=== PATIENT | female | born 1970 | race African-American/Black ===

== ENCOUNTER 2016-10-06 08:59 | Emergency (ER) | payer OTHER ==
[~2016-10-06 08:59] MED LIST: ABILIFY20 MG PO; ACETAMINOPHEN PO; ALPRAZOLAM PO; AMBIEN PO; ARIXTRA2.5 MG/0.5 INJ; ATIVAN2 M1 PO; AZITHROMYCIN250 MG PO; BACTRIM DS TABL1 TA1 PO; BACTRIM DS TABL1 TAB PO; BENADRYL25 M3 PO; BENTYL20 MG PO; CIPRO PO; CLEOCIN150 MG DOB; CLEOCIN150 MG PO; COLACE PO; COMPAZINE10 MG PO; COUMADIN PO; COUMADIN10 MG PO; COUMADIN2.5 MG PO; COUMADIN7.5 MG; COUMADIN7.5 MG PO; DARVOCET-N 1001 TA1 PO; DEPAKOTE PO; DILANTIN PO; DILANTIN-1100 MG/4 M PO; FAMOTIDINE PO; FLEXERIL PO; FLEXERIL10 M1 PO; FOLIC ACID PO; HYDROCORTISONE30 G2 EXT; IBUPROFEN800 MG PO; KEFLEX PO; KEPPRA500 MG PO; KLONOPIN PO; LACTULOSE10 G/15 ML PO; LEVAQUIN PO; LORTAB 5/500 TA1 TA1 PO; LORTAB 7.5-5001 TAB PO; LOVENOX SUBQ; LOVENOX100 MG/ML INJ; LOVENOX80 MG/0.8 INJ; LOVENOX80 MG/0.8 SUBQ; MEDROL DOSEPAK4 MG PO; MEDROL PO; MILK OF MAGNESIA PO; MIRALAX17 GM DOB; MIRALAX17 GM PO; NAPROXEN PO; NO MEDICATIONS; NORCO 10-325 TA1 TAB PO; NORCO 10/325 TA1 TAB PO; NORCO 5/325 TAB1 TAB PO; NORFLEX100 MG PO; NUCYNTA75 MG PO; PERCOCET PO; PERCOCET5/325 PO; PHENERGAN PO; PHENERGAN PR; PHENERGAN12.5 MG/SU RC; PHENERGAN25 M1 PO; PHENERGAN25 MG; PHENERGAN25 MG PO; PLAVIX PO; PRADAXA75 MG PO; PREDNISONE10 MG/DOSE PO; PREVACID PO; PROTONIX PO; PROTONIX20 MG PO; PYRIDIUM PO; REMERON15 MG PO; RISPERDAL1 M1 PO; RISPERIDONE PO; SENNA S TABLET1 TAB PO; SEROQUEL25 MG PO; SEROQUEL50 MG PO; SIMVASTATIN20 MG PO; SKELAXIN PO; SOLU-MEDROL1000 MG IM/IV; SOLU-MEDROL1000 MG IV; SYNTHROID PO; SYNTHROID112 MCG PO; SYNTHROID125 PO; SYNTHROID88 MCG PO; TORADOL10 MG PO; TYLENOL #3 PO; TYLOX 5/500 CAP1 CAP PO; ULTRAM PO; VALIUM10 MG PO; VICODIN 5/1 TAB 5/50 PO; VICODIN 5/500 T1 TAB PO; VICODIN ES 7.51 EACH PO; WARFARIN SODIUM10 MG PO; XANAX0.5 MG PO; XARELTO10 MG PO; XARELTO15 MG PO; XARELTO20 MG PO; ZOFRAN PO; [UNRECOGNIZED DRUG - OTHER] PO
[2016-10-06 10:34] LABS: URINE SOURCE CLEAN CATCH
[2016-10-06 10:41] LABS: URINE APPEARANCE CLEAR; URINE BILIRUBIN NEG (NEG); URINE BLOOD TRACE (NEG); URINE COLOR YELLOW; URINE GLUCOSE NEG (NEG); URINE KETONE NEG (NEG); URINE LEUKOCYTE ESTERASE NEG (NEG); URINE NITRATE NEG (NEG); URINE PH 6.5 (5-8); URINE PROTEIN NEG (NEG); URINE SPECIFIC GRAVITY 1.006 (1.003-1.035); URINE UROBILINOGEN 0.2 MG/DL (NEG)
[2016-10-06 10:45] LABS: CULTURE INDICATED? YES; URBCS1 AUWI 0-2 /[HPF] (0-2); URINE BACTERIA AUWI 1+ (NEGATIVE); URINE SQUAMOUS EPITHELIAL CELL OCC /[HPF]
== END 2016-10-06 12:16 | disposition home or self-care (01) ==
LOC: CED 08:59
PROVIDERS: Physician Assistant
DX: R51 Headache (principal); R11.2 Nausea with vomiting, unspecified; F32.9 Major depressive disorder, single episode, unspecified; F41.9 Anxiety disorder, unspecified; Z86.718 Personal history of other venous thrombosis and embolism; Z90.710 Acquired absence of both cervix and uterus; Z90.49 Acquired absence of other specified parts of digestive tract; Z88.0 Allergy status to penicillin; Z88.2 Allergy status to sulfonamides; Z88.5 Allergy status to narcotic agent; Z88.6 Allergy status to analgesic agent; Z88.8 Allergy status to other drugs, medicaments and biological substances
CPT/HCPCS: 81003; 87086; 96372; 99284; J1200; J2550